=== PATIENT | female | born 1985 | race Caucasian/White ===

== ENCOUNTER → 2023-07-26 09:16 | Outpatient (REF) | payer OTHER, SELFPAY | LOC: WDC 09:16 | PROVIDERS: ATTENDING PHYSICIAN Obstetrics & Gynecology; FAMILY PHYSICIAN Internal Medicine | DX: N63.10 Unspecified lump in the right breast, unspecified quadrant (principal); N63.11 Unspecified lump in the right breast, upper outer quadrant | CPT/HCPCS: 76642; 77062; 77066 ==

== ENCOUNTER 2024-02-18 21:29 | Emergency (ER) | payer OTHER, SELFPAY ==
[2024-02-18 21:31] VITALS: BP 140/100
--- NOTE | 2024-02-18 22:03 | ED.GENMED ---
History of Present Illness
<Ena Coombs PA-C - Last Filed: 02/19/24 00:00>
General
Chief Complaint: Eye Problems
Source: patient
Exam Limitations: none
Time Seen by Provider: 02/18/24 21:36
Nursing documentation reviewed up to this point in time: agreed with
History of Present Illness
History of Present Illness:
Patient is a 38-year-old female presenting to the emergency department due to left eye irritation. Patient states that she was in the shower approximately 2 hours ago when a significant amount of shampoo got into her left eye. She did irrigate the
eye significantly at home prior to coming to the emergency department. She presents for evaluation given burning/irritation has persisted. Patient denies any associated visual loss, blurry vision, double vision, tearing. She does state her mildly
improving. Patient is not a contact lens wearer. No other concerns today.
Past History
<Ena Coombs PA-C - Last Filed: 02/19/24 00:00>
Past History
ED Past Medical History: None
ED Past Surgical History: None
Social History
Tobacco: Non-smoker
Alcohol: None
Drug: None
Personal:
Living: with family
Review of Systems
<Ena Coombs PA-C - Last Filed: 02/19/24 00:00>
Review of Systems
Allergies reviewed?: Yes
All Other Systems: ROS reviewed and negative except as documented in HPI and ROS
Phy Exam
<Ena Coombs PA-C - Last Filed: 02/19/24 00:00>
Physical Exam
Physical Exam:
Vitals: Patient's vital signs are stable. Afebrile
General: Patient is well appearing, no acute distress
Skin: Warm and dry, no rashes or lesions
Head: Normocephalic, atraumatic
Eyes: Visual Acuity: R 20/20 without correction, L 20/20 without correction, B/L 20/20 without
correction. No proptosis bilaterally. No periorbital swelling, erythema, or tenderness bilaterally. Scleral injection of left eye. No tearing. Left cornea is clear without opacities and no fluorescence dye
uptake or leobardo sign. Anterior chambers are clear without hyphema or Hypopyon, PERRL, no APD.
pH is R 7, L 7.
Throat: Protecting airway
Neck: Normal ROM, no cervical spine tenderness
Cardiac: Regular rate
Pulm: No apparent respiratory distress
Abdomen: Nondistended
Extremities: No evidence of cyanosis or edema
Neuro: Grossly intact
Psychiatric: Normal affect.
Course
<Ena Coombs PA-C - Last Filed: 02/19/24 00:00>
Orders/Labs/Results
Orders:
Orders
02/18/24 23:00
Fluorescein Sodium [Ful-Denise] 1 mg .ROUTE .STK-MED ONE
Vital Signs
Initial and Last Documented VS:
Initial Vital Signs
Temp Pulse Resp BP Pulse Ox
97.8 F 58 18 140/100 100
02/18/24 21:31 02/18/24 21:31 02/18/24 21:31 02/18/24 21:31 02/18/24 21:31
Last Documented Vital Signs
Temp Pulse Resp BP Pulse Ox
97.8 F 60 16 130/83 99
02/18/24 21:31 02/18/24 22:56 02/18/24 22:56 02/18/24 22:56 02/18/24 22:56
<Gordon Menon DO - Last Filed: 02/18/24 22:23>
Orders/Labs/Results
Orders:
Orders
02/18/24 23:00
Fluorescein Sodium [Ful-Denise] 1 mg .ROUTE .STK-MED ONE
Vital Signs
Initial and Last Documented VS:
Initial Vital Signs
Temp Pulse Resp BP Pulse Ox
97.8 F 58 18 140/100 100
02/18/24 21:31 02/18/24 21:31 02/18/24 21:31 02/18/24 21:31 02/18/24 21:31
Last Documented Vital Signs
Temp Pulse Resp BP Pulse Ox
97.8 F 60 16 130/83 99
02/18/24 21:31 02/18/24 22:56 02/18/24 22:56 02/18/24 22:56 02/18/24 22:56
<Ena Coombs PA-C - Last Filed: 02/19/24 00:00>
MDM/Problems Addressed
Differential Diagnosis Includes:
Not limited to: Eye irritation, corneal abrasion, chemical burn, etc.
MDM/Problems Addressed:
38-year-old female presenting for evaluation of left eye irritation after shampoo got in her eye during shower. Patient well-appearing, in no apparent distress. Visual acuity 20/20 bilaterally. Left eye with scleral injection�no tearing or
proptosis. PERRL bilaterally. Extraocular muscles intact. pH of bilateral eyes ~7. Left eye without any evidence of fluorescein uptake to suggest corneal abrasion.
Given pH of by normal with no evidence of corneal abrasion/erosion, patient stable for discharge. Discussed avoiding over irrigation to further irritate eye. Return precautions discussed with patient. Patient will follow-up with eye doctor if
symptoms persist/worsen. Patient seen with attending physician.
Chronic conditions affecting care:
N/A
Acute Exacerbation and/or Progression of Chronic Illness:
N/A
<nEa Coombs PA-C - Last Filed: 02/19/24 00:00>
*Pulse Oximetry
Patient hypoxic: no
*EKG
Interpreted by ED Provider?: NA
*Piece Cutter Interpretation
Rate: Piece Cutter- N/A
*Critical Care Note
Total Time (30-74mins, 75-104mins- exclusive of procedures): Not Applicable
ED Attending Note
<Ena Coombs PA-C - Last Filed: 02/19/24 00:00>
-
Portions of this chart may have been created with voice recognition software.� Occasional wrong word or��sound alike� substitutions may have occurred due to the inherent limitations of voice recognition software.
<Gordon Menon DO - Last Filed: 02/18/24 22:23>
ED Attending Note
Patient seen and examined by attending physician: Yes
I performed the substantive portion of visit, reviewed & personally made and approve the management plan that is documented in note by myself or JORGE.: Yes
ED Attending Note:
38-year-old female concerned about her left eye after she tried to pump shampoo escorted in her eye. She did irrigated in the shower several times. She presents for just evaluation. She does feel the symptoms are improving. Exam: Pupils equal
round and reactive. There is some scleral injection on the left. There is no tearing. There is no proptosis. Assessment and plan: Check pH and cornea to rule out any sort of erosion or abrasion.
Discharge Plan
Departure
Patient Disposition: Home (Routine Discharge)
Date of Disposition: 02/18/24
Time of Disposition: 22:47
Patient with high blood pressure during this ER visit?: Yes
Condition: Good
Covid-19: Not Applicable
Discharge Problem:
Irritation of left eye
Prescriptions:
No Action
PNV cmb#95-ferrous fumarate-FA [] 1 EACH tablet
1 ea PO DAILY
ibuprofen 600 mg Tablet
600 mg PO Q4HPRN PRN (Reason: cramps) Qty: 90 0RF
Referrals:
Raven Silva MD [Family Provider] -
Activity Restrictions/Additional Instructions:
RETURN TO THE EMERGENCY DEPARTMENT WITH ANY VISION LOSS/CHANGES IN VISION, FEVERS, SEVERE HEADACHE, SIGNIFICANT DRAINAGE FROM EYE, WORSENING IN CURRENT SYMPTOMS, OR ANY OTHER CONCERNS
-As discussed�there is no evidence of a corneal abrasion today in your left eye. The pH in your eye was normal. It is likely that your eye is irritated from the shampoo exposure.
-If symptoms persist/worsen�you should follow-up with your eye doctor.
Monitor your symptoms closely and return to the emergency department with any acute worsening/new symptoms
Interventions
Interventions:
*Risk Screen - Suicide Last Done: 02/18/24 21:31
*General Assessment Last Done: 02/18/24 22:58
*Neglect/Abuse Screening Last Done: 02/18/24 21:31
ED- Fall Risk Assessment Last Done: 02/18/24 22:58
*ED COVID-19 Vaccine History Last Done: 02/18/24 22:58
*Nursing Disposition Last Done: 02/18/24 22:58
Discharge Date and Time
Discharge Date/Time: 02/18/24 22:59
Print Language: WALLISIAN
[2024-02-18 22:35] VITALS: BMI 21.1
[2024-02-18 22:56] VITALS: BP 130/83
== END 2024-02-18 22:59 | disposition home or self-care (01) ==
LOC: EMR 21:29
PROVIDERS: EMERGENCY PHYSICIAN Emergency Medicine; FAMILY PHYSICIAN Internal Medicine
DX: H57.12 Ocular pain, left eye (principal)
CPT/HCPCS: 99283